=== PATIENT | male | born 1950 | race Caucasian/White ===

== ENCOUNTER 2018-04-09 07:49 | Emergency (ER) | payer MEDICARE, MEDICAID ==
[2018-04-09 08:17] VITALS: RESP 17
[2018-04-09] MEDS ORDERED: Sodium Chloride 0.9% 1,000 ML IV STA (08:43)
[2018-04-09 09:10] LABS: BASO % 0.6 % (0.0-2.0); EOS # 0.1 K/uL (0.0-0.7); EOS % 2.6 % (0.0-4.0); HEMOGLOBIN 14.6 g/dL (12.0-18.0); LYMPH # 1.3 K/uL (1.0-4.3); LYMPH % 22.6 % (20.0-40.0); MEAN CELL VOLUME 92.9 fl (80.0-94.0); MEAN CORPUSCULAR HEMOGLOBIN 31.1 pg (27.0-31.0); MEAN CORPUSCULAR HGB CONC 33.5 g/dL (33.0-37.0); MEAN PLATELET VOLUME 8.5 fl (7.2-11.7); MONO # 0.4 K/uL (0.0-0.8); MONO % 7.2 % (0.0-10.0); NEUT # 3.8 K/uL (1.8-7.0); RBC 4.7 Mil/uL (4.40-5.90); RED CELL DISTRIBUTION WIDTH 13.1 % (11.5-14.5); WHITE BLOOD COUNT 5.7 K/uL (4.8-10.8)
--- NOTE | 2018-04-09 09:34 | ED PDOC ---
HPI: Back Time Seen by Provider: 04/09/18 08:21 Chief Complaint (Nursing): Back Pain Chief Complaint (Provider): Back Pain History Per: Patient History/Exam Limitations: no limitations Onset/Duration Of Symptoms: Days (x2) Current Symptoms Are (Timing): Still Present Additional Complaint(s): 67 year old male presents to the emergency department with a complaint of right- sided back pain associated with constipation and chills ongoing for 2 days. Patient states pain is present when he changes positions. He denies any fever, chills, nausea, vomiting or diarrhea. PMD: none provided Past Medical History Reviewed: Historical Data, Nursing Documentation, Vital Signs Vital Signs: Last Vital Signs Temp 98.1 F 04/09/18 08:15 Pulse 60 04/09/18 08:15 Resp 17 04/09/18 08:15 BP 172/70 H 04/09/18 08:15 Pulse Ox 99 04/09/18 08:15 - Medical History PMH: Gastritis (not on any medicatoins at this time ), Hypercholesterolemia - Family History Family History: States: Unknown Family Hx - Social History Current smoker - smoking cessation education provided: No Ex-Smoker (has not smoked in the last 12 months): Yes Alcohol: None Drugs: Denies - Immunization History Hx Tetanus Toxoid Vaccination: No Hx Influenza Vaccination: No Hx Pneumococcal Vaccination: No - Home Medications Home Medications: Ambulatory Orders Medication Instructions Recorded Ciprofloxacin HCl [Cipro] 500 mg PO BID 10/24/15 Tamsulosin HCl [Flomax] 0.4 mg PO DAILY 10/24/15 traMADol [Ultram] 50 mg PO BID PRN #15 tab 10/24/15 Famotidine [Pepcid] 40 mg PO DAILY #30 tab 10/19/16 Acetaminophen [Tylenol 325mg tab] 650 mg PO Q6H PRN #50 tab 04/09/18 Cyclobenzaprine [Cyclobenzaprine 10 mg PO TID #30 tab 04/09/18 HCl] Lidocaine 5% [Lidoderm] 1 patch TD DAILY #10 patch 04/09/18 Naproxen [Naprosyn] 500 mg PO BID PRN #20 tablet 04/09/18 - Allergies Allergies/Adverse Reactions: Allergies Allergy/AdvReac Type Severity Reaction Status Date / Time No Known Allergies Allergy Verified 10/19/16 10:23 Review of Systems ROS Statement: Except As Marked, All Systems Reviewed And Found Negative Constitutional: Positive for: Chills. Negative for: Fever Gastrointestinal: Positive for: Constipation. Negative for: Nausea, Vomiting, Diarrhea Musculoskeletal: Positive for: Back Pain (right-sided) Physical Exam - Reviewed Nursing Documentation Reviewed: Yes Vital Signs Reviewed: Yes - Physical Exam Appears: Positive for: Non-toxic, No Acute Distress Neck: Positive for: Normal, Painless ROM, Supple Cardiovascular/Chest: Positive for: Regular Rate, Rhythm Respiratory: Positive for: Normal Breath Sounds. Negative for: Respiratory Distress Gastrointestinal/Abdominal: Positive for: Normal Exam, Soft. Negative for: Tenderness Back: Positive for: Normal Inspection. Negative for: L CVA Tenderness, R CVA Tenderness Extremity: Positive for: Normal ROM (upper/lower). Negative for: Pedal Edema ( bilateral) Neurologic/Psych: Positive for: Alert (x3), Oriented. Negative for: Motor/ Sensory Deficits - Laboratory Results Result Diagrams: 04/09/18 09:00 04/09/18 09:45 - ECG O2 Sat by Pulse Oximetry: 99 (RA) Pulse Ox Interpretation: Normal - Radiology X-Ray: Viewed By Nm X-Ray Interpretation: No Acute Disease Medical Decision Making Medical Decision Making: Initial Impression: Back pain Initial Plan: * Urine dipstick * CBC * ESR * Flexeril 10mg PO * NS 1,000ml IV per 1,000mls/hr * Toradol 30mg IV * Urine culture * UA Scribe Attestation: Documented by Jessy Torres, acting as a scribe for Barb Lake MD. Provider Scribe Attestation: All medical record entries made by the Scribe were at my direction and personally dictated by me. I have reviewed the chart and agree that the record accurately reflects my personal performance of the history, physical exam, medical decision making, and the department course for this patient. I have also personally directed, reviewed, and agree with the discharge instructions and disposition. Disposition - Clinical Impression Clinical Impression: Acute back pain - Patient ED Disposition Is Patient to be Admitted: No Doctor Will See Patient In The: Office Counseled Patient/Family Regarding: Diagnosis, Need For Followup, Rx Given - Disposition Referrals: Carla Reis [Outside] Disposition: Routine/Home Disposition Time: 13:10 Condition: IMPROVED Prescriptions: Acetaminophen [Tylenol 325mg tab] 650 mg PO Q6H PRN #50 tab PRN Reason: Pain, Mild (1-3) Cyclobenzaprine [Cyclobenzaprine HCl] 10 mg PO TID #30 tab Lidocaine 5% [Lidoderm] 1 patch TD DAILY #10 patch Naproxen [Naprosyn] 500 mg PO BID PRN #20 tablet PRN Reason: Pain, Moderate (4-7) Instructions: Muscle Spasms (DC) Forms: [employer] (Maltese) Print Language: PORTUGUESE
[2018-04-09 09:54] LABS: URINE BACTERIA RARE (<OCC); URINE BILIRUBIN NEGATIVE (NEGATIVE); URINE BLOOD NEGATIVE (NEGATIVE); URINE CLARITY CLEAR (Clear); URINE COLOR AMBER (YELLOW); URINE GLUCOSE (UA) NEG (Normal); URINE LEUKOCYTE ESTERASE NEG Leu/uL (Negative); URINE PROTEIN NEGATIVE (NEGATIVE)
[2018-04-09 09:59] LABS: ALB/GLOB RATIO 1.1 (1.0-2.1); ALBUMIN 3.7 g/dL (3.5-5.0); ALT/SGPT 33 U/L (21-72); AST/SGOT 23 U/L (17-59); BLOOD UREA NITROGEN 11 mg/dl (9-20); CALCIUM 8.7 mg/dL (8.4-10.2); GFR AFRICAN-AMERICAN > 60; GFR NON-AFRICAN AMERICAN > 60
[2018-04-09] MEDS ORDERED: Lidocaine 5% Patch TD STA (10:30)
[2018-04-09] MEDS ORDERED: Lidocaine 5% Patch TD ONE (10:38)
[2018-04-09 13:40] VITALS: BP 164/59; PULSE 88; TEMP 98.1; O2SAT 97
--- NOTE | 2018-04-09 14:45 | RAD ---
PROCEDURE: Radiographs of the Lumbar Spine. HISTORY: back pain COMPARISON: No prior. FINDINGS: BONES: Normal alignment. No listhesis. No fracture. DISC SPACES: Limited disc height loss seen at L5-S1 indicative of very mild degenerative disease here. No osteophyte development at the surrounding endplates. Limited osteophyte development is seen at L4-5 anteriorly. OTHER FINDINGS: None. IMPRESSION: Normal lordotic curvature without fracture or spondylolisthesis. Limited degenerative disc changes L4-5 and L5-S1.
== END 2018-04-09 13:35 | disposition home or self-care (01) ==
LOC: H.ER 07:49
DX: M54.9 Dorsalgia, unspecified (principal); M51.37 Other intervertebral disc degeneration, lumbosacral region; E78.00 Pure hypercholesterolemia, unspecified; K59.00 Constipation, unspecified
CPT/HCPCS: 72114; 80053; 81003; 85025; 85651; 87086; 96360; 99284; J1885; J7030